=== PATIENT | female | born 1970 | race Caucasian/White ===

== ENCOUNTER → 2017-10-29 | Outpatient (CLI) | payer OTHER ==
[~2017-10-29] MED LIST: OLAN5 PO
== END | disposition home or self-care (01) ==
LOC: LAB SHORT 11:30 → LAB 11:30
PROVIDERS: Obstetrics & Gynecology
DX: Z01.419 Encounter for gynecological examination (general) (routine) without abnormal findings (principal)
CPT/HCPCS: 87624; G0123

== ENCOUNTER 2023-02-17 14:13 | Emergency (ER) | payer OTHER ==
[~2023-02-17] VITALS: Ht 162.6 cm; Wt 74.8 kg
[2023-02-17 14:45] VITALS: BP 138/90
== END 2023-02-17 15:45 | disposition home or self-care (01) ==
LOC: ER 14:13
DX: S63.502A Unspecified sprain of left wrist, initial encounter (principal); W01.10XA Fall on same level from slipping, tripping and stumbling with subsequent striking against unspecified object, initial encounter; F17.200 Nicotine dependence, unspecified, uncomplicated
CPT/HCPCS: 29125; 73110; 96374-59; 99283-25; J1885